=== PATIENT | male | born 1995 | race Caucasian/White ===

== ENCOUNTER 2021-07-27 23:59 | Emergency (ER) | payer MEDICARE ==
[2021-07-28 00:57] LABS: HEMOGLOBIN 16.1 gm/dl (14.0-17.5); RED BLOOD COUNT 5.24 M/UL (4.20-5.50); WHITE BLOOD COUNT 13.9 K/UL (4.5-11.0)
[2021-07-28 01:23] LABS: BUN/CREATININE RATIO 12 (0-10)
[2021-07-28] MEDS ORDERED: K-TAB ER20 MEQ PO (02:06)
== END 2021-07-28 02:28 | disposition home or self-care (01) ==
LOC: ER1 23:59
PROVIDERS: Family Medicine
DX: F41.9 Anxiety disorder, unspecified (principal); E87.6 Hypokalemia
CPT/HCPCS: 80053; 82550; 82553; 84484; 85025; 93005; 99283

== ENCOUNTER 2021-07-28 22:19 | Emergency (ER) | payer MEDICARE ==
[~2021-07-28 22:19] MED LIST: K-TAB ER20 MEQ PO
== END 2021-07-29 06:52 | disposition home or self-care (01) ==
LOC: ER1 22:19
DX: F41.9 Anxiety disorder, unspecified (principal); F32.A Depression, unspecified; Z20.822 Contact with and (suspected) exposure to COVID-19; F17.200 Nicotine dependence, unspecified, uncomplicated
CPT/HCPCS: 99284; U0002

== ENCOUNTER 2021-08-15 01:00 | Emergency (ER) | payer MEDICARE ==
[2021-08-15 02:50] LABS: HEMOGLOBIN 16.7 gm/dl (14.0-17.5); RED BLOOD COUNT 5.44 M/UL (4.20-5.50); WHITE BLOOD COUNT 10.9 K/UL (4.5-11.0)
[2021-08-15 03:04] LABS: BUN/CREATININE RATIO 10 (0-10)
[2021-08-15] MEDS ORDERED: VISTARIL 50 MG50 MG PO (03:50)
[2021-08-16] MEDS ORDERED: VISTARIL25 MG PO (13:50)
== END 2021-08-15 04:00 | disposition home or self-care (01) ==
LOC: ER1 01:00
PROVIDERS: Physician Assistant
DX: F41.9 Anxiety disorder, unspecified (principal); Z91.013 Allergy to seafood
CPT/HCPCS: 71045; 80048; 84484; 85025; 93005; Q0177

== ENCOUNTER 2021-08-16 12:52 | Emergency (ER) | payer MEDICARE ==
[~2021-08-16 12:52] MED LIST changes: +VISTARIL 50 MG50 MG PO
[2021-08-16] MEDS ORDERED: VISTARIL25 MG PO (13:50)
== END 2021-08-16 14:18 | disposition home or self-care (01) ==
LOC: ER1 12:52
DX: F41.9 Anxiety disorder, unspecified (principal); Z76.0 Encounter for issue of repeat prescription
CPT/HCPCS: Q0177

== ENCOUNTER 2021-08-16 18:38 | Emergency (ER) | payer MEDICARE ==
[~2021-08-16 18:38] MED LIST changes: +VISTARIL25 MG PO
[2021-08-16 19:58] LABS: HEMOGLOBIN 16.3 gm/dl (14.0-17.5); RED BLOOD COUNT 5.28 M/UL (4.20-5.50); WHITE BLOOD COUNT 13.5 K/UL (4.5-11.0)
[2021-08-16 20:18] LABS: BUN/CREATININE RATIO 12 (0-10)
== END 2021-08-16 21:45 | disposition home or self-care (01) ==
LOC: ER1 18:38
PROVIDERS: Physician Assistant Medical
DX: R00.2 Palpitations (principal)
CPT/HCPCS: 76870; 80053; 81001; 82550; 82553; 84484; 85025; 93005; 99281; 99284; Q0177

== ENCOUNTER 2021-10-06 01:19 | Emergency (ER) | payer MEDICARE ==
[2021-10-06 01:47] LABS: HEMOGLOBIN 16.4 gm/dl (14.0-17.5); RED BLOOD COUNT 5.4 M/UL (4.20-5.50); WHITE BLOOD COUNT 10.7 K/UL (4.5-11.0)
[2021-10-06 02:10] LABS: BUN/CREATININE RATIO 12 (0-10)
== END 2021-10-06 05:00 | disposition home or self-care (01) ==
LOC: ER1 01:19
PROVIDERS: Emergency Medicine
DX: F10.129 Alcohol abuse with intoxication, unspecified (principal); F12.122 Cannabis abuse with intoxication with perceptual disturbance
CPT/HCPCS: 70450; 80053; 80307; 85025; 96360; 99285; G0480; J2310

== ENCOUNTER 2021-10-19 02:52 | Emergency (ER) | payer MEDICARE ==
[2021-10-19 04:23] LABS: HEMOGLOBIN 15.5 gm/dl (14.0-17.5); RED BLOOD COUNT 5.18 M/UL (4.20-5.50); WHITE BLOOD COUNT 11.3 K/UL (4.5-11.0)
[2021-10-19 04:43] LABS: BUN/CREATININE RATIO 16 (0-10)
== END 2021-10-19 05:14 | disposition home or self-care (01) ==
LOC: ER1 02:52
PROVIDERS: Family Medicine
DX: F41.9 Anxiety disorder, unspecified (principal)
CPT/HCPCS: 71045; 80048; 82550; 82553; 84439; 84443; 84484; 85025; 93005; 99285

== ENCOUNTER 2021-11-19 05:27 | Emergency (ER) | payer MEDICARE | END 2021-11-19 07:00 | disposition home or self-care (01) | LOC: ER1 05:27 | DX: F41.9 Anxiety disorder, unspecified (principal) | CPT/HCPCS: 82550; 82553; 84484; 93005; 99284 ==

== ENCOUNTER 2021-12-23 23:58 | Emergency (ER) | payer MEDICARE ==
[2021-12-24 00:27] LABS: HEMOGLOBIN 16.3 gm/dl (14.0-17.5); RED BLOOD COUNT 5.48 M/UL (4.20-5.50); WHITE BLOOD COUNT 11.6 K/UL (4.5-11.0)
[2021-12-24 00:47] LABS: BUN/CREATININE RATIO 11 (0-10)
== END 2021-12-24 03:45 | disposition home or self-care (01) ==
LOC: ER1 23:58
PROVIDERS: Family Medicine
DX: F41.9 Anxiety disorder, unspecified (principal); R07.9 Chest pain, unspecified
CPT/HCPCS: 71045; 80053; 82550; 82553; 84484; 85025; 93005; 99285